=== PATIENT | female | born 1980 | race Caucasian/White ===

== ENCOUNTER 2016-11-23 09:56 | Emergency (ER) | payer BC, MEDICAID ==
[2016-11-23] MEDS ORDERED: diphenhydrAMINE 50 MG/ML 1 ML VIAL IVP STA (10:47)
[2016-11-23] MEDS ORDERED: METOCLOPRAMIDE 5 MG/ML 2 ML VIAL IVP STA (10:47)
[2016-11-23] MEDS ORDERED: SODIUM CHLORIDE 0.9% 1,000 ML IV STA (10:47)
[2016-11-23] MEDS ORDERED: MORPHINE SULFATE 4 MG/ML SYRINGE IV STA (10:47)
--- NOTE | 2016-11-23 11:17 | ED ---
General Adult HPI - General Chief complaint: Headache Stated complaint: HEADACHE X 2 WEEKS Time Seen by Provider: 11/23/16 10:18 Source: patient, RN notes reviewed, old records reviewed Mode of arrival: ambulatory Limitations: no limitations - History of Present Illness Initial comments: This is a 36-year-old female ER for evaluation this patient presents for evaluation of headache blurry vision occasional blurry vision. Patient does have history of migraines, does take fluoxetine for depression at which she just started 2 weeks ago. Patient was on amoxicillin earlier in the week for sinus infection, but states symptoms have been persistent for about the entire week. Also still complaining of headache. No trauma. No fevers. - Related Data Home Medications Medication Instructions Recorded Confirmed Amoxic-Pot Clav 875-125Mg 1 tab PO Q12HR 11/23/16 11/23/16 [Augmentin 875-125] FLUoxetine HCL [PROzac] 10 mg PO DAILY 11/23/16 11/23/16 Metoprolol Succinate (ER) [Toprol 25 mg PO DAILY 11/23/16 11/23/16 Xl] Multivitamins, Thera [Multivitamin 1 tab PO DAILY 11/23/16 11/23/16 (formulary)] Naproxen Sodium [Naproxen Sodium 550 mg PO BID PRN 11/23/16 11/23/16 DS] Allergies Allergy/AdvReac Type Severity Reaction Status Date / Time No Known Allergies Allergy Verified 11/23/16 10:52 Review of Systems ROS Statement: Those systems with pertinent positive or pertinent negative responses have been documented in the HPI. ROS Other: All systems not noted in ROS Statement are negative. Past Medical History Past Medical History: Diabetes Mellitus (Insulin-dependent gestational) Additional Past Medical History / Comment(s): hx. rapid heart rate, intermittent abd. pain, n/v History of Any Multi-Drug Resistant Organisms: None Reported Past Surgical History: Section, Cholecystectomy Past Anesthesia/Blood Transfusion Reactions: No Reported Reaction Past Psychological History: No Psychological Hx Reported Smoking Status: Former smoker Past Alcohol Use History: Occasional Past Drug Use History: None Reported - Past Family History Mother Family Medical History: No Reported History General Exam Limitations: no limitations General appearance: alert, in no apparent distress Head exam: Present: atraumatic, normocephalic, normal inspection Eye exam: Present: normal appearance, PERRL, EOMI. Absent: scleral icterus, conjunctival injection, periorbital swelling ENT exam: Present: normal exam, mucous membranes moist Neck exam: Present: normal inspection. Absent: tenderness, meningismus, lymphadenopathy Respiratory exam: Present: normal lung sounds bilaterally. Absent: respiratory distress, wheezes, rales, rhonchi, stridor Cardiovascular Exam: Present: regular rate, normal rhythm, normal heart sounds. Absent: systolic murmur, diastolic murmur, rubs, gallop, clicks GI/Abdominal exam: Present: soft, normal bowel sounds. Absent: distended, tenderness, guarding, rebound, rigid Extremities exam: Present: normal inspection, full ROM, normal capillary refill. Absent: tenderness, pedal edema, joint swelling, calf tenderness Back exam: Present: normal inspection Neurological exam: Present: alert, oriented X3, CN II-XII intact Psychiatric exam: Present: normal affect, normal mood Skin exam: Present: warm, dry, intact, normal color. Absent: rash Course Vital Signs 11/23/16 10:01 Temperature 99.7 F H Pulse Rate 78 Respiratory 20 Rate Blood Pressure 134/76 O2 Sat by Pulse 100 Oximetry - Reevaluation(s) Reevaluation #1: 11/23/16 13:30 Headache at this point appears to be improved Medical Decision Making - Medical Decision Making 36 female ER for evaluation. CT negative for any acute disease, level is normal patient's headache is improved patient can be discharged home - Lab Data Result diagrams: 11/23/16 11:39 11/23/16 11:39 Lab Results 11/23/16 11/23/16 11/23/16 Range/Units 11:39 11:39 11:39 WBC 12.3 H (3.8-10.6) k/uL RBC 4.64 (3.80-5.40) m/uL Hgb 13.3 (11.4-16.0) gm/dL Hct 41.0 (34.0-46.0) % MCV 88.4 (80.0-100.0) fL MCH 28.6 (25.0-35.0) pg MCHC 32.3 (31.0-37.0) g/dL RDW 13.6 (11.5-15.5) % Plt Count 394 (150-450) k/uL Neutrophils % 77 % Lymphocytes % 16 % Monocytes % 3 % Eosinophils % 1 % Basophils % 1 % Neutrophils # 9.5 H (1.3-7.7) k/uL Lymphocytes # 1.9 (1.0-4.8) k/uL Monocytes # 0.4 (0-1.0) k/uL Eosinophils # 0.2 (0-0.7) k/uL Basophils # 0.1 (0-0.2) k/uL Sodium 141 (137-145) mmol/L Potassium 4.5 (3.5-5.1) mmol/L Chloride 102 (98-107) mmol/L Carbon Dioxide 27 (22-30) mmol/L Anion Gap 12 mmol/L BUN 15 (7-17) mg/dL Creatinine 0.63 (0.52-1.04) mg/dL Est GFR (MDRD) Af Amer >60 (>60 ml/min/1.73 sqM) Est GFR (MDRD) Non-Af >60 (>60 ml/min/1.73 sqM) Glucose 98 (74-99) mg/dL Calcium 10.2 (8.4-10.2) mg/dL Total Bilirubin 0.8 (0.2-1.3) mg/dL AST 26 (14-36) U/L ALT 33 (9-52) U/L Alkaline Phosphatase 78 (38-126) U/L Total Protein 8.8 H (6.3-8.2) g/dL Albumin 4.9 (3.5-5.0) g/dL Urine Color Light Yellow Urine Appearance Cloudy H (Clear) Urine pH 7.0 (5.0-8.0) Ur Specific [place] 1.004 (1.001-1.035) Urine Protein Negative (Negative) Urine Glucose (UA) Negative (Negative) Urine Ketones Negative (Negative) Urine Blood Negative (Negative) Urine Nitrite Negative (Negative) Urine Bilirubin Negative (Negative) Urine Urobilinogen <2.0 (<2.0) mg/dL Ur Leukocyte Esterase Negative (Negative) Urine RBC 1 (0-5) /hpf Urine WBC 1 (0-5) /hpf Ur Squamous Epith Cells 6 H (0-4) /hpf Urine Bacteria Rare H (None) /hpf - Radiology Data Radiology results: report reviewed (CT brain is negative for acute disease), image reviewed Disposition Clinical Impression: Migraine, Medication reaction Disposition: HOME SELF-CARE Condition: Good Instructions: Acute Headache (ED) Referrals: China Whittington DO [Primary Care Provider] - 1-2 days
[2016-11-23 12:02] LABS: Basophils # (A) 0.1 k/uL (0-0.2); Basophils % (A) 1 %; CH 27.9; CHCM 31.6; Eosinophils # (A) 0.2 k/uL (0-0.7); Eosinophils % (A) 1 %; HDW 2.17; HGB 13.3 gm/dL (11.4-16.0); Luc % (Auto) 2; Lymphocytes # (A) 1.9 k/uL (1.0-4.8); Lymphocytes % (A) 16 %; MCH 28.6 pg (25.0-35.0); MCHC 32.3 g/dL (31.0-37.0); MCV 88.4 fL (80.0-100.0); Mean Platelet Volume 7.5; Monocytes # (A) 0.4 k/uL (0-1.0); Monocytes % (A) 3 %; Neutrophils # (A) 9.5 k/uL (1.3-7.7); Neutrophils % (A) 77 %; RBC 4.64 m/uL (3.80-5.40); RDW 13.6 % (11.5-15.5); WBC 12.3 k/uL (3.8-10.6); WBC (Perox) 12.25
[2016-11-23 12:04] LABS: Appearance,Urine Cloudy (Clear); Bacteria,Urine Rare /hpf; Bilirubin,Urine Negative (Negative); Glucose,Urine (UA) Negative (Negative); Ketones,Urine Negative (Negative); Leukocyte Esterase,Urine Negative (Negative); Nitrite,Urine Negative (Negative); Particle Count 581; Protein,Urine Negative (Negative); RBC,Urine 1 /hpf (0-5); Specific Gravity,Urine 1.004 (1.001-1.035); Squamous Epithelial Cell,Urine 6 /hpf (0-4); UA Billing (MACRO vs. MICRO) MICRO; Urobilinogen,Urine <2.0 mg/dL (<2.0); WBC,Urine 1 /hpf (0-5)
[2016-11-23 12:13] LABS: ALT 33 U/L (9-52); AST 26 U/L (14-36); Alkaline Phosphatase 78 U/L (38-126); Anion Gap 12 mmol/L; Blood Urea Nitrogen 15 mg/dL (7-17); Calcium 10.2 mg/dL (8.4-10.2); Carbon Dioxide 27 mmol/L (22-30); Chloride 102 mmol/L (98-107); Glucose 98 mg/dL (74-99); Non-African American GFR(MDRD) >60 (>60 ml/min/1.73 sqM); Potassium 4.5 mmol/L (3.5-5.1); Sodium 141 mmol/L (137-145); Total Bilirubin 0.8 mg/dL (0.2-1.3); Total Protein 8.8 g/dL (6.3-8.2)
--- NOTE | 2016-11-23 13:01 | CT ---
EXAMINATION TYPE: CT brain wo con DATE OF EXAM: 11/23/2016 12:50 PM COMPARISON: NONE HISTORY: 36-year-old female complaining of headaches, sinus pressure and dizziness TECHNIQUE: Examination was done in axial plane without intravenous contrast. Coronal and sagittal r econstructions performed. CT DLP: 1017.9 mGycm Automated exposure control for dose reduction was used. FINDINGS: There is no evidence of acute intracranial hemorrhage, acute ischemic changes, mass, mass-effect, or extra-axial fluid collection. There is no effacement of cerebral sulci or basal subarachnoid cister ns. There is no hydrocephalus. There is no midline shift. Garber-white matter distinction is preserv ed. Paranasal sinuses and mastoid air cells are well pneumatized. Orbits and globes are intact. IMPRESSION: No acute intracranial abnormality seen.
[2016-11-23] MEDS ORDERED: KETOROLAC 30 MG/ML 1 ML VIAL IVP STA (13:30)
[2016-11-23 13:43] VITALS: BP 108/71; PULSE 64; RESP 16; TEMP 97.4
== END 2016-11-23 13:52 | disposition home or self-care (01) ==
LOC: EC 09:56
DX: G43.909 Migraine, unspecified, not intractable, without status migrainosus (principal); H53.8 Other visual disturbances; T50.905A Adverse effect of unspecified drugs, medicaments and biological substances, initial encounter; Z87.891 Personal history of nicotine dependence; Z79.899 Other long term (current) drug therapy
CPT/HCPCS: 36415; 80053; 85025; 81001; 87086; 70450; 99284; 96374; 96375 ×3; 96361; J2270; J1200; J2765; J1885

== ENCOUNTER → 2017-05-07 | Outpatient (CLI) | payer BC ==
[2017-05-07 13:03] LABS: Basophils # (A) 0.1 k/uL (0-0.2); Basophils % (A) 0 %; CH 29.9; CHCM 31.9; Eosinophils # (A) 0.2 k/uL (0-0.7); Eosinophils % (A) 2 %; HDW 2.28; HGB 12.9 gm/dL (11.4-16.0); Luc # (Auto) 0.13; Luc % (Auto) 1; Lymphocytes # (A) 1.9 k/uL (1.0-4.8); Lymphocytes % (A) 16 %; MCH 29.7 pg (25.0-35.0); MCHC 31.5 g/dL (31.0-37.0); MCV 94.3 fL (80.0-100.0); Mean Platelet Volume 9.4; Monocytes # (A) 0.5 k/uL (0-1.0); Monocytes % (A) 4 %; Neutrophils # (A) 9.1 k/uL (1.3-7.7); Neutrophils % (A) 77 %; RBC 4.35 m/uL (3.80-5.40); RDW 14.5 % (11.5-15.5); WBC 11.9 k/uL (3.8-10.6)
== END | disposition home or self-care (01) ==
LOC: LABPAT 12:18
PROVIDERS: ATTEND Obstetrics & Gynecology
DX: Z01.812 Encounter for preprocedural laboratory examination (principal)
CPT/HCPCS: 36415; 85025

== ENCOUNTER → 2019-06-07 | Outpatient (CLI) | payer BC ==
[2019-06-07 11:26] LABS: HGB 14.4 gm/dL (11.4-16.0); MCHC 31.9 g/dL (31.0-37.0); Mean Platelet Volume 6.8; Platelet Count 437 k/uL (150-450); RBC 4.79 m/uL (3.80-5.40); RDW 12.6 % (11.5-15.5); WBC 11.8 k/uL (3.8-10.6)
[2019-06-07 17:25] LABS: African American GFR (CKD) 109.9 (60.0-200.0); Albumin/Globulin Ratio 2.08 (1.60-3.17); Anion Gap 8.6 mmol/L (4.00-12.00); BUN/Creat Ratio 17.5 Ratio (12.00-20.00); Calcium 9.7 mg/dL (8.7-10.3); Carbon Dioxide 27.4 mmol/L (21.6-31.8); Chol/HDL Ratio 3.19; Globulin 2.4 g/dL (1.6-3.3); Non-African American GFR(CKD) 94.8 (60.0-200.0); Potassium 4.7 mmol/L (3.5-5.5); Total Bilirubin 0.6 mg/dL (0.3-1.2); Total Protein 7.4 g/dL (6.2-8.2)
== END | disposition home or self-care (01) ==
LOC: LABWHC1 10:18
PROVIDERS: ATTEND Family Medicine
DX: R53.82 Chronic fatigue, unspecified (principal)
CPT/HCPCS: 36415; 80053; 80061; 84443; 85027

== ENCOUNTER → 2019-06-09 | Outpatient (CLI) | payer BC ==
--- NOTE | 2019-06-09 18:40 | XR ---
EXAMINATION TYPE: XR cervical spine limited DATE OF EXAM: 06/09/2019 COMPARISON: NONE HISTORY: Neck pain TECHNIQUE: 3 views FINDINGS: Cervical vertebra have normal alignment. Posterior elements are intact. Disc spaces are caleb rly normal. Atlantoaxial facet joint is normal. There are no cervical ribs. IMPRESSION: Negative cervical spine exam.
--- NOTE | 2019-06-09 18:41 | XR ---
EXAMINATION TYPE: XR lumbar spine 2 or 3V DATE OF EXAM: 06/09/2019 COMPARISON: NONE HISTORY: Back pain TECHNIQUE: 3 views FINDINGS: Lumbar vertebra have normal spacing and alignment. Posterior elements are intact. Sacroilia c joints appear normal. There is no compression fracture. IMPRESSION: Normal lumbar spine exam.
--- NOTE | 2019-06-09 18:59 | XR ---
EXAMINATION TYPE: XR thoracic spine 2V DATE OF EXAM: 06/09/2019 COMPARISON: NONE HISTORY: Pain TECHNIQUE: 3 views FINDINGS: Thoracic vertebra have normal alignment. Posterior elements are intact. There is no paraspi nal mass. There is no compression fracture. IMPRESSION: Negative thoracic spine exam.
[2019-06-10 03:03] LABS: C Reactive Protein <0.4 mg/dL (0.0-0.8); Rheumatoid Factor, Qnt 6 IU/mL (0-15)
[2019-06-10 03:32] LABS: Uric Acid 4.8 mg/dL (2.9-7.7)
== END | disposition home or self-care (01) ==
LOC: LABWHC1 17:20
PROVIDERS: ATTEND Family Medicine
DX: M54.2 Cervicalgia (principal); M54.6 Pain in thoracic spine; M54.5 Low back pain; R53.83 Other fatigue
CPT/HCPCS: 36415; 72040; 72070; 72100; 84439; 84550; 86038; 86140; 86431

== ENCOUNTER → 2019-08-19 | Outpatient (CLI) | payer MEDICAID ==
--- NOTE | 2019-08-19 10:17 | US ---
EXAMINATION TYPE: US thyroid st tissue head/neck DATE OF EXAM: 08/19/2019 COMPARISON: NONE CLINICAL HISTORY: E04.9 Nontoxic goiter, unspecified. MEASUREMENTS: GLAND SIZE: Right Lobe: 4.5 x 1.3 x 1.2cm Homogeneous Left Lobe: 4.0 x 1.2 x 1.3 Homogeneous Isthmus Thickness: 0.2 NODULES RIGHT: # of nodules measured on right: 0 LEFT: # of nodules measured on left: 0 ISTHMUS: # of nodules measured within isthmus: 0 Bilateral neck scanned, no evidence of lymphadenopathy. Homogeneous somewhat small sized thyroid without discrete nodule. IMPRESSION: Small sized homogeneous thyroid without focal nodule.
== END | disposition home or self-care (01) ==
LOC: RADUSWWP 08:54
PROVIDERS: ATTEND Family Medicine
DX: E04.9 Nontoxic goiter, unspecified (principal)
CPT/HCPCS: 76536

== ENCOUNTER → 2019-08-19 | Outpatient (CLI) | payer MEDICAID ==
[2019-08-19 17:52] LABS: Thyroid Peroxidase Antibodies 31.2 U/mL (0.0-60.0)
== END | disposition home or self-care (01) ==
LOC: LABWHC1 09:33
PROVIDERS: ATTEND Family Medicine
DX: E04.9 Nontoxic goiter, unspecified (principal)
CPT/HCPCS: 36415; 84432; 86376

== ENCOUNTER 2019-10-07 | Emergency (ER) | payer BC, MEDICAID | END 2019-10-07 15:09 | disposition home or self-care (01) | CPT/HCPCS: 70450; 70480; 99284 ==

== ENCOUNTER → 2021-12-26 | Outpatient (CLI) | payer BC ==
--- NOTE | 2021-12-26 22:13 | CT ---
EXAMINATION TYPE: CT sinus wo con DATE OF EXAM: 12/26/2021 COMPARISON: CT orbits October 07, 2019 HISTORY: ACUTE RECURRENT SINUSITIS, UNSPECIFIED CT DLP: 735 mGycm. Automated Exposure Control for Dose Reduction was Utilized. TECHNIQUE: CT scan of the sinuses is performed without contrast, axial images are obtained, coronal r eformatted images are also reviewed. FINDINGS: There is 8 mm mucous retention cyst or polyp in the anterior inferior right maxillary sinus axial image 24 and smaller 5 mm mucous retention cyst or polyp in the posterior left sphenoid sinus axial image 43. No suspicious opacification or air-fluid levels. There are hypoplastic bilateral fron leslie sinuses. The ostiomeatal complex is patent bilaterally on coronal image 26. Visualized portion of mastoid air cells show no abnormal opacification. The globes are intact bilate rally. Visualized brain parenchyma unremarkable. IMPRESSION: Mild chronic paranasal sinus disease. No acute sinusitis.
== END | disposition home or self-care (01) ==
LOC: RADCTMAIN 17:47
PROVIDERS: ATTEND Family Medicine
DX: J01.91 Acute recurrent sinusitis, unspecified (principal)
CPT/HCPCS: 70486

== ENCOUNTER → 2022-11-06 | Outpatient (CLI) | payer BC, MEDICAID ==
[2022-11-06 15:55] LABS: Basophils # (A) 0.06 X 10*3/uL (0.00-0.10); Basophils % (A) 0.5 %; Eosinophils % (A) 4.4 %; HCT 41.1 % (37.2-46.3); HGB 13.2 g/dL (12.0-15.0); Immature Grans, Automated 0.6 %; Lymphocytes % (A) 20.4 %; MCHC 32.1 g/dL (32.0-37.0); MCV 93.4 fL (80.0-97.0); Monocytes # (A) 0.58 X 10*3/uL (0.20-1.00); Monocytes % (A) 5.1 %; NRBC Per 100 WBC 0 /100 WBCS (0.0-0.0); Neutrophils # (A) 7.79 X 10*3/uL (1.80-7.70); Platelet Count 334 X 10*3/uL (140-440); RDW 13.3 % (11.5-14.5)
[2022-11-06 16:35] LABS: ALT 25 U/L (8-44); AST 23 U/L (13-35); Albumin 4.8 g/dL (3.8-4.9); Albumin/Globulin Ratio 1.72 (1.60-3.17); Alkaline Phosphatase 75 U/L (41-126); BUN/Creat Ratio 20.08 Ratio (12.00-20.00); Blood Urea Nitrogen 14.4 mg/dL (9.0-27.0); Calcium 9.6 mg/dL (8.7-10.3); Chloride 103 mmol/L (96-109); Globulin 2.8 g/dL (1.6-3.3); Glucose 90 mg/dL (70-110); Non-African American GFR(CKD) 105.3 (60.0-200.0); Potassium 4.8 mmol/L (3.5-5.5); Sodium 141 mmol/L (135-145); Total Protein 7.7 g/dL (6.2-8.2)
== END | disposition home or self-care (01) ==
LOC: LABWHC1 09:03
PROVIDERS: ATTEND Internal Medicine Cardiovascular Disease
DX: Z13.228 Encounter for screening for other metabolic disorders (principal); E55.9 Vitamin D deficiency, unspecified; E78.5 Hyperlipidemia, unspecified
CPT/HCPCS: 36415; 80053; 80061; 82306; 82607; 83036; 84443; 85025

== ENCOUNTER → 2022-11-13 | Outpatient (CLI) | payer MEDICAID ==
--- NOTE | 2022-11-14 10:25 | MM ---
Reason for Exam: Screening (asymptomatic). Baseline mammogram. Patient History: Menarche at age 16. First Full-Term at age 32. Late child-bearing (after 30). Maternal aunt had breast cancer under age 50. Risk Values: Shira 5 year model risk: 0.7%. NCI Lifetime model risk: 12.5%. Prior Study Comparison: Patient's first Mammogram. Tissue Density: The breast tissue is extremely dense which could obscure a lesion on mammography. Findings: Analyzed By CAD. There is occasional benign-appearing tiny round calcification redemonstrated throughout the bilateral breasts. There is no suspicious group of microcalcifications or new suspicious mass in either breast. Overall Assessment: Benign, BI-RAD 2 Management: Screening Mammogram of both breasts in 1 year. Some Advise bilateral breast ultrasound surveillance in patients with background extremely dense tissue . A clinical breast exam by your physician is recommended on an annual basis and results should be correlated with mammographic findings. Electronically signed and approved by: Tito Zaragoza M.D.
== END | disposition home or self-care (01) ==
LOC: RADMAMWWP 15:34
PROVIDERS: ATTEND Family Medicine
DX: Z12.31 Encounter for screening mammogram for malignant neoplasm of breast (principal); Z80.3 Family history of malignant neoplasm of breast
CPT/HCPCS: 77063; 77067

== ENCOUNTER → 2023-09-24 | Outpatient (CLI) | payer MEDICAID ==
--- NOTE | 2023-09-24 22:28 | XR ---
EXAMINATION TYPE: XR lumbar spine 2 or 3V DATE OF EXAM: 09/24/2023 Comparison: 06/09/2019 Clinical History: 43-year-old female M54.50 LOW BACK PAIN, UNSPECIFIED Findings: 5 lumbar type vertebral bodies. Cholecystectomy clips. Moderate degenerative disc disease L5-S1 with disc space narrowing. Vertebral body heights are preserved. Accentuated lower lumbar lordosis. Impression: Moderate degenerative disc disease L5-S1 with accentuated lower lumbar lordosis. No vertebral mi amilcar collapse or malalignment.
== END | disposition home or self-care (01) ==
LOC: RADXRMAIN 09:22
PROVIDERS: ATTEND Physician Assistant Medical
DX: M51.37 Other intervertebral disc degeneration, lumbosacral region (principal); M40.46 Postural lordosis, lumbar region
CPT/HCPCS: 72100

== ENCOUNTER → 2023-12-30 | Outpatient (CLI) | payer MEDICAID ==
--- NOTE | 2023-12-30 18:55 | MM ---
Reason for Exam: Screening (asymptomatic). Last mammogram was performed 1 year(s) and 2 month(s) ago. Patient History: Menarche at age 16. First Full-Term at age 32. Late child-bearing (after 30). Maternal aunt had breast cancer under age 50. Risk Values: Shira 5 year model risk: 0.8%. NCI Lifetime model risk: 12.4%. Prior Study Comparison: 11/13/2022 Bilateral MG 3D screening mammo w/cad, [facility]. Tissue Density: The breasts are heterogeneously dense, which may obscure small masses. Findings: Analyzed By CAD. Areas of bilateral asymmetric density are unchanged. There is no suspicious group of microcalcifications or new suspicious mass in either breast. Overall Assessment: Benign, BI-RAD 2 Management: Screening Mammogram of both breasts in 1 year. . Patient should continue monthly self-breast exams. A clinical breast exam by your physician is recommended on an annual basis. This exam should not preclude additional follow-up of suspicious palpable abnormalities. Note on Shira scores and lifetime risk: 1. A Shira score greater than 3% is considered moderate risk. If this is the case, consider specialist referral to assess eligibility for a risk reducing agent. 2. If overall lifetime risk for the development of breast cancer is 20% or higher, the patient may qualify for future screening with alternating mammogram and breast MRI. Electronically signed and approved by: Choe Butt M.D. Radiologist
== END | disposition home or self-care (01) ==
LOC: RADMAMWWP 08:10
PROVIDERS: ATTEND Family Medicine
DX: Z12.31 Encounter for screening mammogram for malignant neoplasm of breast (principal); Z80.3 Family history of malignant neoplasm of breast
CPT/HCPCS: 77063; 77067

== ENCOUNTER → 2024-04-18 | Outpatient (CLI) | payer MEDICAID ==
[2024-04-18 15:42] LABS: ALT 31 U/L (8-44); AST 25 U/L (13-35); Albumin 4.7 g/dL (3.8-4.9); Albumin/Globulin Ratio 1.68 Ratio (1.60-3.17); Alkaline Phosphatase 79 U/L (41-126); BUN/Creat Ratio 18.67 Ratio (12.00-20.00); Blood Urea Nitrogen 11.2 mg/dL (9.0-27.0); Calcium 9.5 mg/dL (8.7-10.3); Carbon Dioxide 23.6 mmol/L (21.6-31.8); Chloride 99 mmol/L (96-109); Chol/HDL Ratio 3.79 Ratio; Globulin 2.8 g/dL (1.6-3.3); Glucose 89 mg/dL (70-110); LDL Cholesterol,Calculated 121.1 mg/dL (0.0-131.0); Potassium 4.3 mmol/L (3.5-5.5); Sodium 135 mmol/L (135-145); Total Bilirubin 0.5 mg/dL (0.3-1.2); Total Protein 7.5 g/dL (6.2-8.2)
[2024-04-18 15:47] LABS: Basophils # (A) 0.05 X 10*3/uL (0.00-0.10); Basophils % (A) 0.4 %; Eosinophils # (A) 0.36 X 10*3/uL (0.04-0.35); Eosinophils % (A) 3.2 %; HCT 39.5 % (37.2-46.3); HGB 12.7 g/dL (12.0-15.0); Lymphocytes % (A) 21.4 %; MCH 30.7 pg (27.0-32.0); MCHC 32.2 g/dL (32.0-37.0); MCV 95.4 FL (80.0-97.0); Mean Platelet Volume 11.4 FL (9.5-12.2); Monocytes # (A) 0.67 X 10*3/uL (0.20-1.00); NRBC Per 100 WBC 0 X 10*3/uL (0.00-0.01); Neutrophils % (A) 67.9 %; Platelet Count 329 X 10*3/uL (140-440); RBC 4.14 X 10*6/uL (4.10-5.20); RDW 13.4 % (11.5-14.5)
== END | disposition home or self-care (01) ==
LOC: LABWHC1 10:59
PROVIDERS: ATTEND Nurse Practitioner Family
DX: Z13.21 Encounter for screening for nutritional disorder (principal); Z13.29 Encounter for screening for other suspected endocrine disorder; Z13.228 Encounter for screening for other metabolic disorders; E78.5 Hyperlipidemia, unspecified
CPT/HCPCS: 36415; 80053; 80061; 82306; 83036; 84443; 85025

== ENCOUNTER → 2025-01-20 | Outpatient (CLI) | payer MEDICAID ==
--- NOTE | 2025-01-20 09:53 | MM ---
Reason for Exam: Screening (asymptomatic). Last screening mammogram was performed 12 month(s) ago. Patient History: Menarche at age 16. First Full-Term at age 32. Late child-bearing (after 30). Maternal aunt had breast cancer, age 36. Risk Values: Shira 5 year model risk: 0.8%. NCI Lifetime model risk: 12.2%. Prior Study Comparison: 11/13/2022 Bilateral MG 3D screening mammo w/cad, [facility]. 12/30/2023 Bilateral MG 3D screening mammo w/cad, [facility]. Tissue Density: The breasts are heterogeneously dense, which may obscure small masses. Findings: Analyzed By CAD. Right breast: Asymmetry right breast CC view 5.3 cm from the nipple measuring 7 mm. Left breast: There is no suspicious group of microcalcifications or new suspicious mass. Overall Assessment: Negative, BI-RAD 1 Management: Diagnostic Mammogram of the right breast. [facility] will attempt to contact patient to return for supplemental views and ultrasound if indicated. Patient should continue monthly self-breast exams. A clinical breast exam by your physician is recommended on an annual basis. This exam should not preclude additional follow-up of suspicious palpable abnormalities. Note on Shira scores and lifetime risk: 1. A Shira score greater than 3% is considered moderate risk. If this is the case, consider specialist referral to assess eligibility for a risk reducing agent. 2. If overall lifetime risk for the development of breast cancer is 20% or higher, the patient may qualify for future screening with alternating mammogram and breast MRI. [facility], , 01/20/2025 9:51 AM. Electronically signed and approved by: Benji Smith DO
== END | disposition home or self-care (01) ==
LOC: RADMAMWWP 07:02
PROVIDERS: ATTEND Obstetrics & Gynecology
DX: Z12.31 Encounter for screening mammogram for malignant neoplasm of breast (principal); R92.333 Mammographic heterogeneous density, bilateral breasts; Z80.3 Family history of malignant neoplasm of breast
CPT/HCPCS: 77063; 77067

== ENCOUNTER → 2025-01-23 | Outpatient (CLI) | payer MEDICAID ==
--- NOTE | 2025-01-23 08:50 | MM ---
Reason for Exam: Additional evaluation requested from abnormal screening. Last screening mammogram was performed less than 1 month ago. Patient History: Menarche at age 16. First Full-Term at age 32. Late child-bearing (after 30). Maternal aunt had breast cancer, age 36. Risk Values: Shira 5 year model risk: 0.8%. NCI Lifetime model risk: 12.2%. Prior Study Comparison: 11/13/2022 Bilateral MG 3D screening mammo w/cad, [facility]. 12/30/2023 Bilateral MG 3D screening mammo w/cad, [facility]. 01/20/2025 Bilateral MG 3D screening mammo w/cad, [facility]. Tissue Density: Right: The breasts are heterogeneously dense, which may obscure small masses. Findings: Analyzed By CAD. The central inner asymmetric density on the CC view posterior depth does not persist on additional views. Findings compatible with superimposition shadow. Overall Assessment: Benign, BI-RAD 2 Management: Screening Mammogram of both breasts in 1 year. Results were given to the patient verbally at the time of exam. Patient should continue monthly self-breast exams. A clinical breast exam by your physician is recommended on an annual basis. This exam should not preclude additional follow-up of suspicious palpable abnormalities. Note on Shira scores and lifetime risk: 1. A Shira score greater than 3% is considered moderate risk. If this is the case, consider specialist referral to assess eligibility for a risk reducing agent. 2. If overall lifetime risk for the development of breast cancer is 20% or higher, the patient may qualify for future screening with alternating mammogram and breast MRI. [facility], , 01/23/2025 8:47 AM. Electronically signed and approved by: Cheo Butt M.D. Radiologist
== END | disposition home or self-care (01) ==
LOC: RADMAMWWP 09:31
PROVIDERS: ATTEND Obstetrics & Gynecology
DX: R92.8 Other abnormal and inconclusive findings on diagnostic imaging of breast (principal); R92.331 Mammographic heterogeneous density, right breast; Z80.3 Family history of malignant neoplasm of breast
CPT/HCPCS: 77061; 77065